=== PATIENT | male | born 1945 | race Hispanic/Latino ===

== ENCOUNTER → 2018-07-19 | Day surgery (SDC) | payer MEDICARE ==
[2018-07-16 11:56] LABS: BASOPHILS # (AUTO) 0.1 (0.0-0.1); BASOPHILS % 0.4 % (0.0-1.0); EOSINOPHILS # (AUTO) 0.1 (0.0-0.4); EOSINOPHILS % 0.7 % (0.0-6.0); HEMATOCRIT 29.6 % (38.2-49.6); LYMPHOCYTES % 7.4 % (18.0-39.1); MEAN CORPUSCULAR HEMOGLOBIN 25.7 pg (28-32); MEAN CORPUSCULAR HGB CONC 30.4 g/dL (31-35); MEAN CORPUSCULAR VOLUME 84.6 fL (81-99); MONOCYTES # (AUTO) 0.6 (0.2-0.8); MONOCYTES % 4.6 % (4.4-11.3); NEUTROPHILS # (AUTO) 11.7 (2.1-6.9); NEUTROPHILS % 85.4 % (38.7-80.0); PLATELET COUNT 508 x10e3/uL (140-360); RED CELL DISTRIBUTION WIDTH 18.8 % (11.7-14.4)
--- NOTE | 2018-07-16 12:23 | Diagnostic Imaging Report ---
EXAMINATION: PA and lateral views of the chest. COMPARISON: None CLINICAL HISTORY: Preoperative exam for lung biopsy DISCUSSION: Asymmetric, upper lobe right greater than left coarse reticular opacity with linear scarring and upward hilar retraction. Right upper lobe bronchiectasis is suspected. Patchy consolidation inferiorly within the right upper lobe, along the minor fissure. Tortuous thoracic aorta with atherosclerotic calcification. Normal heart size. No acute osseous abnormality. IMPRESSION: Asymmetric upper lobe coarse reticular opacities may be seen in the setting of prior mycobacterial/granulomatous disease, as well as inhalational diseases such as silicosis (patient reports history of employment in a [employer]). Pulmonary sarcoidosis is felt to be less likely in the absence of hilar lymphadenopathy. Associated consolidation along the minor fissure raises the possibility of superimposed right upper lobe pneumonia or active granulomatous disease in the correct clinical setting. CT scan of the chest may be of benefit for further evaluation if not already performed at an outside facility. Signed by: Dr. Praneeth Madison M.D. on 07/16/2018 12:19 PM
[2018-07-16 12:24] LABS: ANION GAP 13.5 mmol/L (8-16); BLOOD UREA NITROGEN 16 mg/dL (7-26); BUN/CREATININE RATIO 20 (6-25); CALCIUM 10.4 mg/dL (8.4-10.2); CARBON DIOXIDE 25 mmol/L (22-29); CHLORIDE 100 mmol/L (98-107); CREATININE, SERUM 0.82 mg/dL (0.72-1.25); EST GLOMERULAR FILTRATION RATE > 60 ML/MIN (60-); GLUCOSE 140 mg/dL (74-118); POTASSIUM 4.5 mmol/L (3.5-5.1); SODIUM 134 mmol/L (136-145)
[~2018-07-19] MED LIST: AMLODIPINE BESYL5 MG PO; ATORVASTATIN CA20 MG PO; EPINEPHRINE HCL 1:1000 1ML 1 MG/ML AMP ONE; FENTANYL CITRATE/PF 100MCG/2 ML INJ ONE; GLIPIZIDE5 MG PO; GLYCOPYRROLATE INJ 1MG/ 5 ML SYR ONE; KETAMINE HCL INJ 50 MG/ML 10 ML VIAL ONE; LIDOCAINE HCL 2% 30 ML TUBE ONE; LIDOCAINE HCL 2% LOCAL INJ 5 ML SDV VIAL INJ ONE; LIDOCAINE HCL 4% 50 ML BTL ONE; LOSARTAN-HCTZ1 EAC1 PO; METFORMIN HCL500 MG PO; MIDAZOLAM HCL 2 MG/2 ML VIAL ONE; PROPOFOL IV EMULSION 10 MG/ML 20 ML VIAL ONE
--- OUTSIDE RECORDS SUMMARY | 2018-07-19 05:53 | XMS REPORT ---
Author Author [facility] Address Unknown Phone Unavailable Care Team Providers Care Card Clothier Name Role Phone YULIYA SHANNON Unavailable Unavailable Problems This patient has no known problems. Allergies, Adverse Reactions, Alerts This patient has no known allergies or adverse reactions. Medications This patient has no known medications. Results Test Description Test Time Test Comments Text Results Atomic Results Result Comments CHEST 2 VIEWS 2018-07-16 12:15:00 [place] [id number] Patient Name: TRISTEN MONTOYA MR #: [id number] : 1945 Age/Sex: 73/M Req #: [id number] Adm Physician: Ordered by: YULIYA SHANNON MD Report #: [id number] Location: ENDO Room/Bed: Procedure: [id number] DX/CHEST 2 VIEWS Exam Date: 07/16/18 Exam Time: 1155 REPORT STATUS: Signed EXAMINATION: PA and lateral views of the chest. COMPAR PATRICIO: None CLINICAL HISTORY: Preoperative exam for lung biopsy DISCUSSION: Asymmetric, upper lobe right greater than left coarse reticular opacity with linear scarring and upward hilar retraction. Right upper lobe bronchiectasis is suspected. Patchy consolidation inferiorly within the right upper lobe, along the minor fissure. Tortuous thoracic aorta with atherosclerotic calcification. Normal heart size. No acute osseous abnormality. IMPRESSION: Asymmetric upper lobe coarse reticular opacities may be seen in the setting of prior mycobacterial/granulomatous disease, as well as inhalational diseases such as silicosis (patient reports history of employment in a [employer]). Pulmonary sarcoidosis is felt to be less likely in the absence of hilar lymphadenopathy. Associated consolidation along the minor fissure raises the possibility of superimposed right upper lobe pneumonia or active granulomatous disease in the correct clinical setting. CT scan of the chest may be of benefit for further evaluation if not already performed at an outside facility. Signed by: Dr. Kimberlyn Joseph M.D. on 07/16/2018 12:19 PM Dictated By: KIMBERLYN JOSEPH MD [id number] Transcribed By: PARIS on 07/16/18 1219 COPY TO: YULIYA SHANNON MD
--- NOTE | 2018-07-19 07:10 | NUR ---
SPIRITUAL CARE - Pre-Surgery Assessment: Pt in bed. Pt reported supportive attention from family and friends. Intervention: I provided pastoral presence, hospitality, and sympathetic listening. I acquainted pt with availability of transport company manager while hospitalized. Outcome: Pt expressed appreciation for visit. No need for follow up indicated at this time. JOSR Granadoslain Spiritual Care Department O: [phone] Pager: [phone] ([phone] number calling from)
--- NOTE | 2018-07-19 10:14 | Diagnostic Imaging Report ---
EXAM: CHEST XRAY POST PROCEDURE, AP Portable DATE: 07/19/2018 Time stamp on exam: 9:36 AM INDICATION: Post bronchoscopy COMPARISON: 07/16/2018 FINDINGS: LINES/TUBES: None LUNGS: Increased opacity in both apical regions; right side greater than left. No pneumothorax is identified. Right apical opacity shows increased density which may be related to hemorrhage status post bronchoscopy. PLEURA: No effusions or pneumothorax. HEART AND MEDIASTINUM: Normal size and contour. BONES AND SOFT TISSUES: No acute findings. IMPRESSION: Opacities in both apical regions without evidence of a pneumothorax Signed by: Dr. Praneeth Cabrera DO on 07/19/2018 10:10 AM
[2018-07-19 10:30] VITALS: BP 121/69
[2018-07-19 10:58] LABS: BODY FLUID APPEARANCE SL.CLOUDY; BODY FLUID COLOR RED; BODY FLUID TYPE LAVAGE
[2018-07-19 10:59] LABS: RBC,BODY FLUID 35739 cells/uL; WBC,BODY FLUID 545 cells/uL
[2018-07-19 11:02] LABS: LYMPHOCYTES,BODY FLUID 25 %; MONO/MACROPHG,BODY FLUID 3 %; NEUTROPHILS,BODY FLUID 71 %; OTHER CELLS,BODY FLUID 1 %
--- NOTE | 2018-07-19 15:34 | Operative Report ---
DATE OF PROCEDURE: SURGEON: Bo Hernandez MD PREOPERATIVE DIAGNOSIS: Cavitary infiltrates in upper lobes. POSTOPERATIVE DIAGNOSIS: Cavitary infiltrates in upper lobes. ANESTHESIA: MAC sedation was provided by the Anesthesia Service. CONSENT: Consent was obtained from the patient. PROCEDURE: Bronchoscopy with transbronchial biopsies and microbiology brushings. DESCRIPTION OF PROCEDURE: The patient was placed in a supine position. The oral bite block was used. The upper airway was examined. The glottis, piriform sinuses, and arytenoid cartilages were all normal. The scope was then advanced into the trachea. The tracheal mucosa was normal. The chio was normal. The left tracheobronchial tree was then examined. The left lower lobe was within normal limits. There were no endobronchial lesions. The scope was repositioned into the left upper lobe. There were no endobronchial lesions. Washings and brushings were taken from the left upper lobe in the apical posterior subsegment. The scope was then repositioned into the right tracheobronchial tree. The mainstem bronchus was normal. The right middle lobe and right lower lobe were normal to the subsegmental level. The right upper lobe had a friable mucosa. Transbronchial biopsies were taken under fluoroscopy in both the posterior subsegment and the apical subsegment of the right upper lobe. Endobronchial biopsies were also taken at the orifice of the posterior subsegment of the right upper lobe. Washings were also obtained as well as brushings. COMPLICATIONS: None. ESTIMATED BLOOD LOSS: None. Bo Hernandez MD LMH/MODL /[id number]
== END | disposition home or self-care (01) ==
LOC: ENDO 05:50
PROVIDERS: ATTEND Internal Medicine Critical Care Medicine
DX: R91.8 Other nonspecific abnormal finding of lung field (principal); R06.9 Unspecified abnormalities of breathing; Z87.891 Personal history of nicotine dependence; Z79.84 Long term (current) use of oral hypoglycemic drugs; Z82.49 Family history of ischemic heart disease and other diseases of the circulatory system; Z80.9 Family history of malignant neoplasm, unspecified; E11.9 Type 2 diabetes mellitus without complications; J84.10 Pulmonary fibrosis, unspecified
CPT/HCPCS: 31623; 31628; 36415 ×2; 71045; 71046; 80048; 82948; 85025; 87102; 87116; 87206 ×2; 88305; 88312; 89051; 93005; J0171; J2001; J2250; J2704; J3490; 31622

== ENCOUNTER 2018-09-16 20:41 | Inpatient (IN) | payer MEDICARE, OTHER ==
[~2018-09-16] VITALS: Ht 167.6 cm; Wt 63.5 kg
[~2018-09-16 20:41] MED LIST changes: -EPINEPHRINE HCL 1:1000 1ML 1 MG/ML AMP ONE; -FENTANYL CITRATE/PF 100MCG/2 ML INJ ONE; -GLYCOPYRROLATE INJ 1MG/ 5 ML SYR ONE; -KETAMINE HCL INJ 50 MG/ML 10 ML VIAL ONE; -LIDOCAINE HCL 2% 30 ML TUBE ONE; -LIDOCAINE HCL 2% LOCAL INJ 5 ML SDV VIAL INJ ONE; -LIDOCAINE HCL 4% 50 ML BTL ONE; -MIDAZOLAM HCL 2 MG/2 ML VIAL ONE; -PROPOFOL IV EMULSION 10 MG/ML 20 ML VIAL ONE
[2018-09-16] MEDS ORDERED: SODIUM CHLORIDE 0.9% 1000ML 1,000 ML IV ONE (22:30)
[2018-09-16 22:41] LABS: BASOPHILS % 0.2 % (0.0-1.0); EOSINOPHILS # (AUTO) 0.1 (0.0-0.4); EOSINOPHILS % 0.3 % (0.0-6.0); HEMATOCRIT 30.1 % (38.2-49.6); HEMOGLOBIN 9.4 g/dL (14.0-18.0); LYMPHOCYTES % 5.9 % (18.0-39.1); MEAN CORPUSCULAR HEMOGLOBIN 26.3 pg (28-32); MEAN CORPUSCULAR HGB CONC 31.2 g/dL (31-35); MEAN CORPUSCULAR VOLUME 84.1 fL (81-99); MONOCYTES # (AUTO) 0.9 (0.2-0.8); MONOCYTES % 5.4 % (4.4-11.3); NEUTROPHILS # (AUTO) 14.2 (2.1-6.9); NEUTROPHILS % 86.9 % (38.7-80.0); PLATELET COUNT 582 x10e3/uL (140-360); RED BLOOD COUNT 3.58 x10e6/uL (4.3-5.7); RED CELL DISTRIBUTION WIDTH 17.1 % (11.7-14.4)
[2018-09-16 22:44] LABS: BILIRUBIN,URINE NEGATIVE (NEGATIVE); CLARITY,URINE CLEAR (CLEAR); COLOR,URINE ORANGE (YELLOW); KETONES,URINE NEGATIVE (NEGATIVE); LEUKOCYTE ESTERASE ,URINE NEGATIVE (NEGATIVE); NITRITE,URINE NEGATIVE (NEGATIVE); PROTEIN,URINE DIPSTICK TRACE (NEGATIVE); URINE UROBILINOGEN 0.2 mg/dL (0.2 - 1)
[2018-09-16 22:59] LABS: BACTERIA,URINE MANY /HPF; EPITHELIAL CELLS,URINE FEW /LPF
[2018-09-16 23:00] LABS: MUCUS,URINE FEW (RARE)
[2018-09-16 23:04] LABS: ALANINE AMINOTRANSFERASE 14 IU/L (0-55); ALBUMIN 2.4 g/dL (3.5-5.0); ALBUMIN/GLOBULIN RATIO 0.5 (0.8-2.0); ALKALINE PHOSPHATASE 70 IU/L (40-150); ANION GAP 17.1 mmol/L (8-16); BLOOD UREA NITROGEN 18 mg/dL (7-26); BUN/CREATININE RATIO 18 (6-25); CARBON DIOXIDE 26 mmol/L (22-29); CHLORIDE 94 mmol/L (98-107); CREATINE KINASE 22 IU/L (30-200); CREATININE, SERUM 0.99 mg/dL (0.72-1.25); EST GLOMERULAR FILTRATION RATE > 60 ML/MIN (60-); GLUCOSE 151 mg/dL (74-118); POTASSIUM 3.1 mmol/L (3.5-5.1); SODIUM 134 mmol/L (136-145)
[2018-09-16 23:20] LABS: CALCIUM 9.6 mg/dL (8.4-10.2)
[2018-09-16 23:25] LABS: FREE THYROXINE INDEX 2.6326 (1.4-3.8); THYROID STIMULATING HORMONE 1.189 uIU/mL (0.350-4.940)
--- NOTE | 2018-09-16 23:47 | Diagnostic Imaging Report ---
A single frontal view of the chest. HISTORY: Weakness, fever, currently on TB treatment, additional history provided of interval initiation of TB treatment COMPARISON: Chest radiographs July 16, 2018 and July 19, 2018. DISCUSSION: Portable technique, limits sensitivity of the exam. Tubes/Lines: None Lungs and pleura: Continued increase in the right greater than left biapical interstitial and airspace opacities with architectural distortion. Interval increase patchy interstitial and airspace opacities at the right mid to lower lung. Heart and mediastinum: The cardiomediastinal silhouette appears unchanged. Bones and soft tissues: Appear unchanged. IMPRESSION: Interval progression of the bilateral interstitial and airspace opacities, right greater than left. This is of uncertain clinical significance given the 2 month interval since the comparison radiographs and the reported history of starting TB treatment during the interim, since those radiographs were obtained. Discussed with Dr. Nelson via phone on September 16, 2018 at 2340, whom states he will consult with the patient's make up worker. Signed by: Dr. Mahesh Soares D.O., M.M.M. on 09/16/2018 11:44 PM
[2018-09-17] VITALS (9 sets, daily range): BP systolic 102–176; BP diastolic 58–81
--- NOTE | 2018-09-17 00:15 | NUR ---
verbal order per dr ureña: take all state required medications for TB. Patient has medications on his property
[2018-09-17] MEDS ORDERED: ONDANSETRON HCL INJ 2MG/ML 2ML 2 MG/ML VIAL IV PRN (00:30)
[2018-09-17] MEDS ORDERED: DEXTROSE 50% SYRINGE 50 ML IV PRN (00:30)
[2018-09-17] MEDS: KCL 20MEQ/.9 SOD CHL 1,000 ML IV SCH ×3 (00:58→21:57)
[2018-09-17] MEDS: CEFTRIAXONE SOD 1 GM/NS 50 ML 50 ML IV SCH (00:58)
--- NOTE | 2018-09-17 06:27 | NUR ---
Patient is laying in bed, eyes closed, respirations are even and unlabored. Son is at bedside, wearing mask. Airborne precautions in place.
--- NOTE | 2018-09-17 06:51 | NUR ---
tyler- pharmacist notified of blister packs that need to be taken for active tb which are in patients belongings. In addition, dr ureña had long discussion with pharmacist regarding blister packs and need to take them, Identification of pills to be made by pharmacy. Further, state [facility] of health security representative will come and witness medication administration.
[2018-09-17] MEDS ORDERED: ZOLPIDEM TARTRATE 5 MG TAB PO PRN (07:30)
[2018-09-17] MEDS ORDERED: POTASSIUM CHLORIDE 20 MEQ TAB CR PO NR (07:30)
[2018-09-17] MEDS: INSULIN REGULAR, HUMAN 100 UNIT/1 ML 3ML VIAL SQ SCH ×4 (07:30→20:48)
[2018-09-17] MEDS ORDERED: METFORMIN HCL 500 MG TAB PO SCH (09:00)
[2018-09-17] MEDS ORDERED: HOME MEDICATION--PATIENTS OWN PO SCH (09:00)
[2018-09-17] MEDS ORDERED: RIFAMPIN 300 MG CAP PO SCH (09:00)
--- NOTE | 2018-09-17 09:42 | NUR ---
Paged Dr. Hernandez regarding patient's home medication list and TB medications. Awaiting call back
[2018-09-17] MEDS ORDERED: FERROUS SULFAT325 M1 PO (11:24)
[2018-09-17] MEDS ORDERED: LOSARTAN POTAS100 MG PO (11:24)
[2018-09-17] MEDS ORDERED: HYDROCHLOROTHIA25 MG PO (11:24)
--- NOTE | 2018-09-17 12:47 | Diagnostic Imaging Report ---
CT BRAIN WO HISTORY: Unsteady gait COMPARISON: None. Technique: Noncontrast axial scans were obtained from skull base to the vertex. Coronal and sagittal reconstructions obtained from the axial data. One or more of the following dose reduction techniques were used: Automated exposure control, adjustment of the mA and/or kV according to patient size, and/or utilization of iterative reconstruction technique. DISCUSSION: Scalp/Skull: Unremarkable. Brain sulci: Mildly prominent. Ventricles: Compensatory dilatation. Extra-axial spaces: No masses or fluid collections. Carotid siphon calcifications are present. Parenchyma: Mild bilateral deep white matter hypodensity is likely chronic microvascular ischemic change. Otherwise, no masses, hemorrhage, or large vascular territory acute infarct. Dural sinuses: No abnormal densities. Sellar/Suprasellar region: Intact. Skull base: Intact. Incidental findings: Mild left posterior ethmoid air cell mucosal thickening. IMPRESSION: 1. No acute intracranial abnormalities. 2. Mild supratentorial chronic microvascular ischemic change. Mild generalized cerebral volume loss. Signed by: Dr. Brian Omer M.D. on 09/17/2018 12:44 PM
--- NOTE | 2018-09-17 13:15 | Diagnostic Imaging Report ---
EXAM: CT Chest WITH intravenous contrast 09/17/2018 7:26 AM INDICATION: Tuberculosis COMPARISON: Chest radiographs of 07/19/2018 and 09/16/2018 TECHNIQUE: Chest was scanned utilizing a multidetector helical scanner from the lung apex through the level of the adrenal glands without administration of IV contrast. Coronal and sagittal reformations were obtained. Routine protocol was performed. IV CONTRAST: 100mL Isovue 370 RADIATION DOSE: Total DLP: 1402.42 mGy*cm. Dose modulation, iterative reconstruction, and/or weight based adjustment of the mA/kV was utilized to reduce the radiation dose to as low as reasonably achievable. COMPLICATIONS: None FINDINGS: LINES/ TUBES: None. LUNGS AND AIRWAYS: The central airways are patent. There are extensive bilateral upper lobe right greater than left consolidations with cavitation and air bronchograms. The right upper lobe is nearly entirely consolidated with large central cavitation. Peripherally adjacent to these areas, there is extensive tree-in-bud nodularity and bronchiectasis. There are scattered areas of groundglass opacity, consolidation, and tree-in-bud nodularity throughout the remaining lobes of both lungs right greater than left. PLEURA: No pleural effusion or pneumothorax. HEART AND MEDIASTINUM: There is a 1.7 x 1.3 cm left thyroid nodule with likely internal lacy septations. No supraclavicular, axillary or mediastinal lymphadenopathy. No hilar lymphadenopathy. The heart is not enlarged. Diffuse coronary artery atherosclerotic calcifications and atherosclerotic calcifications of the thoracic aorta. No pericardial effusion. UPPER ABDOMEN: Contrast-enhanced images of the upper abdomen demonstrate no focal liver lesion in the partially visualized liver. The partially visualized spleen, pancreas, adrenal glands appear unremarkable. BONES: No fracture or dislocation. Mild degenerative changes of the visualized spine. No suspicious lytic or blastic lesions. SOFT TISSUES: Unremarkable. IMPRESSION: Bilateral upper lobe predominant, right greater than left, extensive consolidation with large central cavitation and associated groundglass opacities, bronchiectasis, and tree-in-bud nodularity throughout the remaining lobes of both lungs. Findings are consistent with active tuberculosis infection. Coronary artery atherosclerosis. Signed by: Christopher Harrison MD on 09/17/2018 1:11 PM
--- NOTE | 2018-09-17 13:35 | Consultation ---
DATE OF CONSULTATION: Pulmonary and Critical Care Consultation CHIEF COMPLAINT: Weakness, falling, and current tuberculosis. HISTORY OF PRESENT ILLNESS: The patient is a 73-year-old man. About 6 weeks ago, he had a bronchoscopy for a cavitary upper lobe lesion that showed tuberculosis. He was subsequently referred to the health department and started on 4-drug regimen. He only notes minimal improvement. He had worsening weakness over the past several days and poor appetite. He also felt lightheaded and unsteady. He actually fell on one occasion. He denies any fevers or weight loss. He does have some sputum production. PAST MEDICAL HISTORY: 1. Hypertension. 2. Diabetes. 3. Anemia. 4. Hyperlipidemia. SOCIAL HISTORY: The patient is a former smoker. He has no drug or alcohol use. FAMILY HISTORY: Significant for diabetes and hypertension. ALLERGIES: NO KNOWN DRUG ALLERGIES. REVIEW OF SYSTEMS: The patient is afebrile. He has felt lightheaded and dizzy. He actually fell on one occasion. He does not complain of headache or neck pain. He has a cough productive of some phlegm, but no hemoptysis. He denies any chest pain. He is having no nausea or vomiting. He does report some leg edema. He denies any weight loss. PHYSICAL EXAMINATION: VITAL SIGNS: The patient is afebrile. The blood pressure is 117/63 and the saturation is 97%. The pulses are 102. HEENT: No facial swelling or erythema. The nasal mucosa is normal. The oropharynx is normal. LYMPHATIC: No submandibular, cervical, or supraclavicular adenopathy. CARDIAC: Reveals regular rate and rhythm with a normal S1 and S2. There are no murmurs or rubs. LUNGS: Auscultation of lungs reveals no crackles. There is no wheezing. ABDOMEN: Soft, nontender. There is no rebound or guarding. EXTREMITIES: No leg edema or calf tenderness. There is no cyanosis or clubbing. SKIN: No rashes. NEUROLOGIC: Weakness, but no focal abnormalities. LABORATORY DATA: White blood cell count is 16.3 and hemoglobin is 9.4. The platelet count is 582. Sodium is 134 and the BUN to creatinine ratio is 18 to 0.99. The potassium is 3.1. IMPRESSION: 1. Active tuberculosis with worsening leukocytosis and phlegm production. 2. Dizziness and unsteady gait. 3. Anemia, unspecified. 4. Hypertension. 5. Diabetes. PLAN: 1. The patient will have a CT scan of the chest as well as a CT scan of the head. 2. We will continue his outpatient antituberculosis regimen. 3. IV fluids. 4. Infectious Disease consultation. 5. Further recommendations after results of CT scan are available. MD EDI Raphael/VINCENT /[id number]
[2018-09-17] MEDS: PYRAZINAMIDE 500 MG TAB PO SCH ×2 (14:00→20:48)
[2018-09-17] MEDS: ETHAMBUTOL HCL 400 MG TAB PO SCH (14:00)
[2018-09-17] MEDS: ISONIAZID 300 MG TAB PO SCH (14:00)
[2018-09-17] MEDS: RIFAMPIN 300 MG CAP PO SCH (14:00)
[2018-09-17] MEDS: PYRIDOXINE HCL 50 MG TAB PO SCH (14:00)
[2018-09-17] MEDS ORDERED: PYRAZINAMIDE 500 MG TAB PO SCH (15:00)
--- NOTE | 2018-09-17 15:10 | NUR ---
Nutrition Intervention Note RD Recommendation(s) for Physician: The patient meets criteria for MODERATE protein-calorie malnutrition. -Continue ADA diet as ordered -Rec Glucerna BID to increase protein-calorie intake -Rec appetite stimulant to increase PO intake Plan of Care: RD following, monitoring for tolerance and adequacy, ONS rec Nutrition reason for involvement: Nutrition risk trigger MST RD Assessment 09/17 - 73 yo M, who was admitted for active tuberculosis with worsening leukocytosis and phlegm production. Visited pt in the room. Pt was started on medications to treat tuberculosis about 2 months ago. Pt reported eating less than usual as he did not feel hungry anymore and usually eats only 1 meal w/ 2 snacks a day. Per family, pt has lost significant amount of weight with reported UBW at ~204lbs last February. No complains of nausea or vomiting. Pt denied any chewing or swallowing difficulty. Pt ate ~75% of lunch today. Pt also reported constipation for 3-4days. RD rec Glucerna BID to increase protein-calorie intake and pt was agreeable. Will continue to monitor and follow. Principal Problems/Diagnoses: 1. Active tuberculosis with worsening leukocytosis and phlegm production. 2. Dizziness and unsteady gait. 3. Anemia, unspecified. PMH: 1. Hypertension. 2. Diabetes. 3. Anemia. 4. Hyperlipidemia. GI: abdomen soft, round Skin: no pressure wound noted Labs: (09/17) Na 134 L, K 3.1 L, Glucose 145 H Meds: KCl, vitamin B6, insulin Ht: 66in Wt: 140lb BMI: 22.6kg/m2 IBW: 142lb + / - 10% Malnutrition Evaluation (09/17/2018) The patient meets criteria for MODERATE protein-calorie malnutrition. Energy intake: <75% of estimated energy requirements for >1 month Weight loss: >10% in 6 months (Chronic) Fat loss: Moderate clavicle protrusion Muscle loss: Moderate protrusion of acromion process Supporting Evidence: Fluid accumulation: unable to evaluate Functional Status: reduced Nutrition Prescription (Diet Order): ADA diet Estimated Nutritional Needs: Calories: 1600 2240kcal (25-35kcal/kg/d) Weight used: CBW Protein: 64 96g(1-1.5g/kg/d) Weight used: CBW Diet Adequacy: Meeting calorie needs, Not meeting protein needs Diet Education Needs Assessment: Diet education indicated. Provided tips on increasing calorie intake through supplements and nutrient-dense foods Nutrition Care Level: mod Nutrition Diagnosis: Moderate malnutrition related to inadequate oral intake as evidenced by <75% of estimated energy requirements for >1 month, >10% weight loss in 6 months (Chronic) as well as moderate fat/ muscle loss. Goal: Patient will meet 75-100% of estimated needs by follow up Progress: Progressing Interventions: Carbohydrate-modified diet, Commercial beverage, Prescription medications Monitoring/Evaluation: Total energy intake, Total protein intake, Prescription medication, Modified diet, Liquid supplement, and Weight change Signed: Megan Lawrence, MS, RD, LD
[2018-09-17 18:45] LABS: HIV 1&2 AB SCREEN NON-REACTIVE (NONREACTIVE)
--- NOTE | 2018-09-17 19:00 | NUR ---
Patient visited in room during nursing rounds. Patient alert and oriented x3. Pt ambulatory and currently sitting at bedside recliner entertaining guests. Pt son to stay with patient tonight. Pt on IVF (NS with 20meqKCL at 125 ml/hr). Pt on airborne isolation due to positive tuberculosis (TB). Pt on scheduled IV antibiotics. Call de paz within reach. Will monitor closely.
[2018-09-17] MEDS: ATORVASTATIN 20 MG TAB PO SCH (20:48)
--- NOTE | 2018-09-17 20:52 | NUR ---
Called Dr. Josh Hernandez and informed pt requested for stool softener. Last bowel movement was on09/15/18. aware and ordered Dulcolax 10mg PO daily.
[2018-09-17] MEDS: BISACODYL 5 MG TAB EC PO SCH (21:00)
[2018-09-17] MEDS ORDERED: AMLODIPINE BESYLATE 5 MG TAB PO SCH (21:00)
--- NOTE | 2018-09-17 21:03 | NUR ---
Pt offered dulcolax but refused. Pt stated he will take it tomorrow (09/18/18).
[2018-09-18] VITALS (7 sets, daily range): BP systolic 128–146; BP diastolic 58–67
--- NOTE | 2018-09-18 00:03 | Consultation ---
DATE OF CONSULTATION: REASON FOR CONSULTATION: TB, recommendation antibiotic. HISTORY OF PRESENT ILLNESS: This patient who is a very pleasant 73-year-old male. He was diagnosed with mycobacterium tuberculosis recently back in August. The patient has been followed by the Health Department since August 17 with the OT. He is getting four drugs daily. The patient started to feel really bad and weak yesterday, could not stand up, so he came to the hospital. He is being admitted, I am asked to see him. The patient currently feeling better. There is no fever, no chills, no nausea, no vomiting, no diarrhea. His breathing is better and his coughing is better he said. PAST MEDICAL HISTORY: He does not know. Until recently, he used to be in and he was in the [facility] back in 60[facility]. The patient will be followed by Dr. Hernandez as an outpatient. Hypertension, diabetes, anemia, and hyperlipidemia. PAST SURGICAL HISTORY: Denies. ALLERGIES: NKA. SOCIAL HISTORY: He used to smoke. He was a , but no drug abuse or alcohol abuse. He does not smoke anymore. Family is at the bedside. REVIEW OF SYSTEMS: CONSTITUTIONAL: He is currently feeling better, but when he first came, he was really weak and dizzy, could not stand up. No fever. No chills. No cough. : No urgency. No frequency. SKIN: There is no rash. All other systems within normal limits. JOINT: Negative. LABORATORY DATA: Reviewed. His chart reviewed. CAT scan also reviewed. His white count 16.29, hemoglobin 9.4. His sodium 134, potassium 3.1, creatinine 0.99. Liver enzyme within normal limits. PHYSICAL EXAMINATION: GENERAL: He is currently alert, oriented, does not seem to be in acute distress. VITAL SIGNS: Stable. Afebrile. No fever since admission. HEENT: Normocephalic. He is not icteric. NECK: Supple. CHEST: Few crackles. COR: S1, S2. No S3, S4, or murmur. ABDOMEN: Soft. Bowel sounds present. No tenderness. EXTREMITIES: No edema. The patient is currently on rifampin, pyrazinamide, ethambutol, Rocephin, glipizide. He had a chest CT, which showed bilateral upper lobe predominant right greater than left extensive consolidation with large central cavitation with bronchiectasis. IMPRESSION: 1. Dizziness and vertigo. 2. Tuberculosis. 3. Diabetes. 4. Hypertension. Agreeing with continuing forward with drug treatment. Recommend to obtain sensitivity on the Mycobacterium if not done. I am concerned about superimposed infection and pneumonia, currently on Rocephin and Zyvox, which will add one more drug against tuberculosis. Agree with nutritional support. Agree with IV fluids. 5. Anemia. 6. Hypertension. 7. We will follow. MD DADA Duval/MODL /[id number]
[2018-09-18] MEDS: CEFTRIAXONE SOD 1 GM/NS 50 ML 50 ML IV SCH (00:37)
[2018-09-18] MEDS ORDERED: ACETAMINOPHEN 325 MG TAB PO PRN (00:45)
[2018-09-18 05:24] LABS: ALANINE AMINOTRANSFERASE 10 IU/L (0-55); ALBUMIN 1.7 g/dL (3.5-5.0); ALBUMIN/GLOBULIN RATIO 0.5 (0.8-2.0); ALKALINE PHOSPHATASE 51 IU/L (40-150); ANION GAP 11.7 mmol/L (8-16); BLOOD UREA NITROGEN 12 mg/dL (7-26); BUN/CREATININE RATIO 18 (6-25); CALCIUM 8.3 mg/dL (8.4-10.2); CARBON DIOXIDE 23 mmol/L (22-29); CHLORIDE 104 mmol/L (98-107); CREATININE, SERUM 0.65 mg/dL (0.72-1.25); EST GLOMERULAR FILTRATION RATE > 60 ML/MIN (60-); GLUCOSE 119 mg/dL (74-118); POTASSIUM 3.7 mmol/L (3.5-5.1); SODIUM 135 mmol/L (136-145)
[2018-09-18 06:34] LABS: BASOPHILS % 0.3 % (0.0-1.0); EOSINOPHILS # (AUTO) 0.1 (0.0-0.4); HEMATOCRIT 26.7 % (38.2-49.6); HEMOGLOBIN 8.3 g/dL (14.0-18.0); LYMPHOCYTES # (AUTO) 0.9 (1.0-3.2); LYMPHOCYTES % 7.4 % (18.0-39.1); MEAN CORPUSCULAR HEMOGLOBIN 26.3 pg (28-32); MEAN CORPUSCULAR HGB CONC 31.1 g/dL (31-35); MEAN CORPUSCULAR VOLUME 84.8 fL (81-99); MONOCYTES # (AUTO) 0.7 (0.2-0.8); MONOCYTES % 5.4 % (4.4-11.3); NEUTROPHILS # (AUTO) 10.4 (2.1-6.9); NEUTROPHILS % 84.4 % (38.7-80.0); PLATELET COUNT 479 x10e3/uL (140-360); RED BLOOD COUNT 3.15 x10e6/uL (4.3-5.7); RED CELL DISTRIBUTION WIDTH 17.2 % (11.7-14.4)
[2018-09-18] MEDS: KCL 20MEQ/.9 SOD CHL 1,000 ML IV SCH ×3 (06:52→16:30)
--- NOTE | 2018-09-18 07:00 | NUR ---
RCD PT AT BED PT IS ALERT AND ORIENTED PT RESTING ON BED FAMILY AT BED SIDE BED LOW AND LOCKED CALL LIGHT IN REACH
[2018-09-18] MEDS: INSULIN REGULAR, HUMAN 100 UNIT/1 ML 3ML VIAL SQ SCH ×4 (07:30→21:00)
[2018-09-18] MEDS: METFORMIN HCL 500 MG TAB PO SCH (08:00)
[2018-09-18] MEDS: GLIPIZIDE 5 MG TAB PO SCH (08:30)
[2018-09-18] MEDS: BISACODYL 5 MG TAB EC PO SCH (09:00)
[2018-09-18] MEDS: RIFAMPIN 300 MG CAP PO SCH (09:00)
[2018-09-18] MEDS: PYRIDOXINE HCL 50 MG TAB PO SCH (09:00)
[2018-09-18] MEDS: HYDROCHLOROTHIAZIDE 25 MG TAB PO SCH (09:00)
[2018-09-18] MEDS: ETHAMBUTOL HCL 400 MG TAB PO SCH (09:00)
[2018-09-18] MEDS: LOSARTAN POTASSIUM 100 MG TAB PO SCH (09:00)
[2018-09-18] MEDS: PYRAZINAMIDE 500 MG TAB PO SCH ×3 (09:00→20:30)
[2018-09-18] MEDS: ISONIAZID 300 MG TAB PO SCH (09:00)
--- NOTE | 2018-09-18 12:26 | NUR ---
THE ATTENDING DR IS CHANGING TO DR SHANNON TO DR CHIKIS BLANCHARD
--- NOTE | 2018-09-18 12:42 | NUR ---
Spoke with Dr. Hernandez, who states he wants attending changed to Dr. Sharp due to insurance. He states he has already spoken with Dr. Sharp yesterday regarding patient. CM called and spoke with Dr. Sharp who will accept pt and states he will see pt later today. Order placed to change attending. Notified REYNALDO Jarquin of order.
--- NOTE | 2018-09-18 14:21 | Progress Note ---
DATE: SUBJECTIVE: The patient feels better. He has less fatigue and feels steady on his feet. He is not complaining of fever or chest pain. PHYSICAL EXAMINATION: VITAL SIGNS: The patient is afebrile. The vital signs are stable. HEENT: No facial swelling or erythema. The nasal mucosa is normal. The oropharynx is normal. LYMPHATIC: No submandibular, cervical, or supraclavicular adenopathy. CARDIAC: Reveals a regular rate and rhythm with a normal S1 and S2. There are no murmurs or rubs. LUNGS: Auscultation of lungs reveals crackles in both lung rosario. ABDOMEN: Soft, nontender. There is no rebound or guarding. EXTREMITIES: There is no leg edema or calf tenderness. IMPRESSION: 1. Active tuberculosis with worsening leukocytosis and phlegm production. 2. Dizziness and unsteady gait. 3. Anemia. 4. Hypertension. PLAN: 1. Continue current antibacterial regimen. 2. [facility] case [facility]. 3. Possible discharge tomorrow. Bo Hernandez MD LM/VINCENT /[id number]
--- NOTE | 2018-09-18 17:55 | NUR ---
History and Physical cc: dizziness HPI: 73yoM, PCP , developed sob, pt has active TB with cavitary lung disease. Pt last went to [place] 2 years ago to a . He was there for 1 day; No known TB contacts in recent past nor at that time. PMH: DM2, HTN, BPPV, anemia PSHx: none Allergies; see emr Fh/SH; former smoker; no illicits meds; see MAR ROS: no cp/sob/back pain/diarrhea/N/V/hematochezia/night sweats. V/S: revd PE: tired appearing anicteric ns1s2 mod bs soft nt nd no e/t a&ox3; romo skin dry n. 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
[2018-09-18 18:17] LABS: CHOL/HDL RATIO 3.8 (3.9-4.7)
--- NOTE | 2018-09-18 18:40 | NUR ---
PT RESTING ON BED BED SIDE REPORT GIVEN TO ONCOMING NURSE
[2018-09-18] MEDS: ATORVASTATIN 20 MG TAB PO SCH (20:30)
[2018-09-19] VITALS (7 sets, daily range): BP systolic 118–147; BP diastolic 64–79
--- NOTE | 2018-09-19 00:17 | NUR ---
PATIENT HAD A LIQUID BROWN BOWEL MOVEMENT AND WAS UNSUCCESSFUL MAKING IT TO THE TOILET. THE FECES WERE ON THE FLOOR IN A MODERATE AMOUNT AND PATIENT WAS SOILED. WAS ABLE TO CLEAN THE FLOOR, GET THE PATIENT IN THE SHOWER, AND REPLACE GOWN AND ALL SOILED ITEMS. PATIENT ALSO VOICED THAT HE TOOK A LAXATIVE EARLY THAT MORNING AND IT HAD FINALLY KICKED IN. BEDSIDE COMMODE SET UP NEAR PATIENT. HE IS ALSO RESTING IN RECLINER, CALL LIGHT WITHIN REACH, WILL CONTINUE TO MONITOR.
[2018-09-19] MEDS: CEFTRIAXONE SOD 1 GM/NS 50 ML 50 ML IV SCH (00:58)
--- NOTE | 2018-09-19 03:15 | NUR ---
PATIENT RESTING IN BED, BOTH EYES CLOSED. NO DISTRESS NOTED, AND PATIENT HAS NOT PRODUCED ANOTHER BOWEL MOVEMENT. BEDSIDE COMMODE STILL AT BEDSIDE, FAMILY MEMBER STILL IN ROOM. BED IS LOCKED AND IN LOWEST POSITION, BOTH SIDE RAILS ARE UP, CALL LIGHT WITHIN EASY REACH, WILL CONTINUE TO MONITOR.
--- NOTE | 2018-09-19 07:10 | NUR ---
RCD PT AT BED PT IS ALERT AND ORIENTED PT RESTING ON BED FAMILY AT BED SIDE BED LOW AND LOCKED CALL LIGHT IN REACH
[2018-09-19] MEDS: GLIPIZIDE 5 MG TAB PO SCH (07:30)
[2018-09-19] MEDS: INSULIN REGULAR, HUMAN 100 UNIT/1 ML 3ML VIAL SQ SCH ×4 (07:30→19:16)
[2018-09-19] MEDS: METFORMIN HCL 500 MG TAB PO SCH (08:00)
[2018-09-19] MEDS: KCL 20MEQ/.9 SOD CHL 1,000 ML IV SCH ×2 (08:30→16:30)
[2018-09-19] MEDS: ETHAMBUTOL HCL 400 MG TAB PO SCH (09:00)
[2018-09-19] MEDS: PYRIDOXINE HCL 50 MG TAB PO SCH (09:00)
[2018-09-19] MEDS: HYDROCHLOROTHIAZIDE 25 MG TAB PO SCH (09:00)
[2018-09-19] MEDS: BISACODYL 5 MG TAB EC PO SCH (09:00)
[2018-09-19] MEDS: LOSARTAN POTASSIUM 100 MG TAB PO SCH (09:00)
[2018-09-19] MEDS: PYRAZINAMIDE 500 MG TAB PO SCH ×3 (09:00→20:25)
[2018-09-19] MEDS: ISONIAZID 300 MG TAB PO SCH (09:00)
[2018-09-19] MEDS: RIFAMPIN 300 MG CAP PO SCH (09:00)
--- NOTE | 2018-09-19 10:56 | Progress Note ---
DATE: SUBJECTIVE: The patient feels better. He still has some fatigue and some phlegm production in the mornings. PHYSICAL EXAMINATION: VITAL SIGNS: The patient is afebrile. The vital signs are stable. HEENT: Shows no facial swelling or erythema. CARDIAC: Reveals a regular rate and rhythm with normal S1, S2. LUNGS: Auscultation of lungs reveals clear breath sounds bilaterally. There is no wheezing. ABDOMEN: Soft, nontender. There is no rebound or guarding. EXTREMITIES: There is no leg edema or calf tenderness. IMPRESSION: 1. Active tuberculosis with leukocytosis and phlegm production. 2. Unsteady gait as resolved. 3. Anemia. 4. Hypertension. PLAN: 1. Continue current antimicrobial regimen. 2. Discuss further therapy with Infectious Disease and Dr. Sharp. Bo Hernandez MD [facility] /[id number]
--- NOTE | 2018-09-19 15:36 | NUR ---
Nutrition Intervention Note RD Recommendation(s) for Physician: The patient meets criteria for MODERATE protein-calorie malnutrition. - Continue ADA diet as ordered - Continue Glucerna BID to increase protein-calorie intake Plan of Care: Patient has been screened and assessed for nutrition risk. At this time, the patient does not pose any nutrition risk. No further nutrition intervention is warranted at this time. Will re-evaluate if consulted by medical staff. Nutrition reason for involvement: Follow up RD Assessment 09/19- Visited pt in the room. Pt reported good appetite with 75% meal intake. Pt drinks some of the Glucerna ordered. Family also had been bringing food from outside. No nutrition concern at this time. 09/17 - 73 yo M, who was admitted for active tuberculosis with worsening leukocytosis and phlegm production. Visited pt in the room. Pt was started on medications to treat tuberculosis about 2 months ago. Pt reported eating less than usual as he did not feel hungry anymore and usually eats only 1 meal w/ 2 snacks a day. Per family, pt has lost significant amount of weight with reported UBW at ~204lbs last February. No complains of nausea or vomiting. Pt denied any chewing or swallowing difficulty. Pt ate ~75% of lunch today. Pt also reported constipation for 3-4days. RD rec Glucerna BID to increase protein-calorie intake and pt was agreeable. Will continue to monitor and follow. Principal Problems/Diagnoses: 1. Active tuberculosis with worsening leukocytosis and phlegm production. 2. Dizziness and unsteady gait. 3. Anemia, unspecified. PMH: 1. Hypertension. 2. Diabetes. 3. Anemia. 4. Hyperlipidemia. GI: abdomen soft, flatus present, LBM 09/19 Skin: no pressure wound noted Labs: (09/19) reviewed (09/17) Na 134 L, K 3.1 L, Glucose 145 H Meds: esidrix, vitamin B6, KCl, glucophage, glucotrol Ht: 66in Wt: 140lb BMI: 22.6kg/m2 IBW: 142lb + / - 10% Malnutrition Evaluation (09/17/2018) The patient meets criteria for MODERATE protein-calorie malnutrition. Energy intake: <75% of estimated energy requirements for >1 month Weight loss: >10% in 6 months (Chronic) Fat loss: Moderate clavicle protrusion Muscle loss: Moderate protrusion of acromion process Supporting Evidence: Fluid accumulation: unable to evaluate Functional Status: reduced Nutrition Prescription (Diet Order): ADA diet Estimated Nutritional Needs: Calories: 1600 2240kcal (25-35kcal/kg/d) Weight used: CBW Protein: 64 96g (1-1.5g/kg/d) Weight used: CBW Diet Adequacy: Meeting calorie needs, meeting protein needs Diet Education Needs Assessment: Diet education indicated. Provided tips on increasing calorie intake through supplements and nutrient-dense foods Nutrition Care Level: low Nutrition Diagnosis: Moderate malnutrition related to inadequate oral intake as evidenced by <75% of estimated energy requirements for >1 month, >10% weight loss in 6 months (Chronic) as well as moderate fat/ muscle loss. Goal: Patient will meet 75-100% of estimated needs by follow up Progress: Goal met Interventions: Carbohydrate-modified diet, Commercial beverage, Prescription medications Monitoring/Evaluation: Total energy intake, Total protein intake, Prescription medication, Modified diet, Liquid supplement, and Weight change Signed: Megan Lawrence MS, RD, LD
--- NOTE | 2018-09-19 16:46 | NUR ---
IM- progress note O/N no events ROS: no cp/sob/back pain/diarrhea/N/V/hematochezia/night sweats. V/S: revd PE: tired appearing anicteric ns1s2 mod bs soft nt nd no e/t a&ox3; romo skin dry n. 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 will d/w / POC Ambrocio Sharp MD, PhD.
--- NOTE | 2018-09-19 18:48 | NUR ---
PT RESTING ON BED BED SIDE REPORT GIVEN TO ONCOMING NURSE
[2018-09-19] MEDS: ATORVASTATIN 20 MG TAB PO SCH (20:25)
--- NOTE | 2018-09-19 20:25 | NUR ---
PATIENT RELAXING IN RECLINER, NO DISTRESS NOTED. FAMILY MEMBERS ARE PRESENT, VOICED THAT HE HAS NOT HAD ANOTHER LIQUID LIKE BOWEL MOVEMENT SINCE THE PREVIOUS NIGHT. CALL LIGHT IS WITHIN PATIENT'S REACH, WILL CONTINUE TO MONITOR.
[2018-09-20] VITALS: BP 133/70
[2018-09-20] MEDS: CEFTRIAXONE SOD 1 GM/NS 50 ML 50 ML IV SCH (00:31)
--- NOTE | 2018-09-20 01:39 | NUR ---
PATIENT RESTING IN BED, BOTH EYES CLOSED. NO RESPIRATORY DISTRESS NOTED, FAMILY MEMBER IS AT BEDSIDE. BED IS LOCKED AND IN LOWEST POSITION, CALL LIGHT WITHIN EASY REACH, WILL CONTINUE TO MONITOR.
[2018-09-20 04:00] VITALS: BP 137/74
[2018-09-20] MEDS: KCL 20MEQ/.9 SOD CHL 1,000 ML IV SCH (05:10)
--- NOTE | 2018-09-20 06:40 | NUR ---
IM- progress note O/N no events ROS: no cp/sob/back pain/diarrhea/N/V/hematochezia/night sweats. V/S: revd PE: tired appearing anicteric ns1s2 mod bs soft nt nd no e/t a&ox3; romo skin dry n. 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 will d/w / POC Check labs; possible d/c; will d/w team Ambrocio Sharp MD, PhD.
--- NOTE | 2018-09-20 07:00 | NUR ---
BEDSIDE SHIFT REPORT FROM NIGHT RN. PT DENIES FURTHER NEEDS AT THIS TIME.
[2018-09-20 07:24] LABS: BASOPHILS % 0.3 % (0.0-1.0); EOSINOPHILS # (AUTO) 0.2 (0.0-0.4); EOSINOPHILS % 1.7 % (0.0-6.0); HEMATOCRIT 24.2 % (38.2-49.6); HEMOGLOBIN 7.5 g/dL (14.0-18.0); LYMPHOCYTES # (AUTO) 0.7 (1.0-3.2); LYMPHOCYTES % 6.8 % (18.0-39.1); MEAN CORPUSCULAR HEMOGLOBIN 26.3 pg (28-32); MEAN CORPUSCULAR VOLUME 84.9 fL (81-99); MONOCYTES # (AUTO) 0.7 (0.2-0.8); MONOCYTES % 6.5 % (4.4-11.3); NEUTROPHILS % 83.3 % (38.7-80.0); PLATELET COUNT 502 x10e3/uL (140-360); RED BLOOD COUNT 2.85 x10e6/uL (4.3-5.7); RED CELL DISTRIBUTION WIDTH 17.6 % (11.7-14.4)
[2018-09-20] MEDS: INSULIN REGULAR, HUMAN 100 UNIT/1 ML 3ML VIAL SQ SCH ×2 (07:30→11:30)
--- NOTE | 2018-09-20 07:30 | NUR ---
PER DR. DIOP, PT OK TO DISCHARGE HOME PER DR. DORSEY.
[2018-09-20 07:56] LABS: ANION GAP 11.4 mmol/L (8-16); BLOOD UREA NITROGEN 7 mg/dL (7-26); BUN/CREATININE RATIO 11 (6-25); CALCIUM 8.3 mg/dL (8.4-10.2); CARBON DIOXIDE 23 mmol/L (22-29); CHLORIDE 101 mmol/L (98-107); CREATININE, SERUM 0.61 mg/dL (0.72-1.25); EST GLOMERULAR FILTRATION RATE > 60 ML/MIN (60-); GLUCOSE 115 mg/dL (74-118); POTASSIUM 3.4 mmol/L (3.5-5.1); SODIUM 132 mmol/L (136-145)
[2018-09-20 07:59] VITALS: BP 122/63
[2018-09-20 08:00] VITALS: BP 122/63
[2018-09-20] MEDS: GLIPIZIDE 5 MG TAB PO SCH (08:29)
[2018-09-20] MEDS: LOSARTAN POTASSIUM 100 MG TAB PO SCH (08:29)
[2018-09-20] MEDS: METFORMIN HCL 500 MG TAB PO SCH (08:29)
[2018-09-20] MEDS: BISACODYL 5 MG TAB EC PO SCH (08:29)
[2018-09-20] MEDS: PYRIDOXINE HCL 50 MG TAB PO SCH (08:30)
[2018-09-20] MEDS: RIFAMPIN 300 MG CAP PO SCH (08:30)
[2018-09-20] MEDS: HYDROCHLOROTHIAZIDE 25 MG TAB PO SCH (08:30)
[2018-09-20] MEDS: ISONIAZID 300 MG TAB PO SCH (08:30)
[2018-09-20] MEDS: PYRAZINAMIDE 500 MG TAB PO SCH (08:30)
[2018-09-20] MEDS: ETHAMBUTOL HCL 400 MG TAB PO SCH (08:30)
[2018-09-20 11:32] VITALS: BP 124/60
--- NOTE | 2018-09-20 11:57 | NUR ---
IMM letter delivered and explained to pt. He verbalized understanding. Signed copy placed in chart. Copy to pt.
--- NOTE | 2018-09-20 13:00 | NUR ---
PER SHERINE DAILEY TO DISCHARGE PT HOME.
--- NOTE | 2018-09-20 13:51 | NUR ---
PT DISCHARGED AT THIS TIME.
--- NOTE | 2018-09-20 16:53 | NUR ---
[facility]PT CALLED AND NOTIFIED OF PT DISCHARGING HOME. RELEASE OF RECORDS SIGNED AND PT LABS AND PROGRESS NOTES FAXED.
== END 2018-09-20 14:13 | disposition home or self-care (01) | DRG 178 ==
LOC: ER 20:41 → ERHOLD 09-17 00:35 → MED/SURG2 09-17 02:35 → OBSVTOIN 09-18 17:56
PROVIDERS: ADMIT Internal Medicine; ATTEND Internal Medicine
DX: A15.9 Respiratory tuberculosis unspecified (principal); N39.0 Urinary tract infection, site not specified; J98.4 Other disorders of lung; Z87.891 Personal history of nicotine dependence; E87.6 Hypokalemia; E11.9 Type 2 diabetes mellitus without complications; Z79.4 Long term (current) use of insulin; D64.9 Anemia, unspecified; E78.5 Hyperlipidemia, unspecified; R26.81 Unsteadiness on feet
CPT/HCPCS: 36415; 70450; 71045; 71260; 80048; 80053; 80061; 81001; 82550; 82553; 82948; 83036; 84436; 84443; 84479; 84484; 85025; 87390; 87536; 93005; 99284; G0378; G0433; G0435; J0696; J7030